=== PATIENT | male | born 1950 | race Caucasian/White ===

== ENCOUNTER 2022-11-23 10:56 | Observation (INO) ==
--- NOTE | 2022-11-02 10:24 | PAT Medication Instructions ---
Medication Instructions Date of Service November 02, 2022 Home Medications acetaminophen 650 mg tablet,extended release 1,300 mg PO Q8H PRN Pain aspirin 81 mg capsule 81 mg PO QPM atorvastatin 20 mg tablet 20 mg PO QAM loratadine-pseudoephedrine ER 10 mg-240 mg tablet,extended [id number] (Claritin-D 24 Hour) 1 tab PO HS melatonin 10 mg tablet 10 mg PO HS naproxen sodium 220 mg tablet (Aleve) 220 mg PO HS ASK your surgeon for instructions naproxen sodium 220 mg tablet (Aleve) 220 mg PO HS Take morning of surgery With a small sip of water, OTHERWISE NOTHING TO EAT OR DRINK AFTER MIDNIGHT: acetaminophen 650 mg tablet,extended release 1,300 mg PO Q8H PRN Pain (if needed) atorvastatin 20 mg tablet 20 mg PO QAM Take evening before surgery acetaminophen 650 mg tablet,extended release 1,300 mg PO Q8H PRN Pain (if needed) aspirin 81 mg capsule 81 mg PO QPM (unless surgeon directed otherwise) loratadine-pseudoephedrine ER 10 mg-240 mg tablet,extended [id number] (Claritin-D 24 Hour) 1 tab PO HS melatonin 10 mg tablet 10 mg PO HS Other Notes If you have any questions please call us at [phone] or [phone] or [phone] or [phone]
--- NOTE | 2022-11-04 10:28 | Anesthesiology Consultation ---
Date of Service November 04, 2022 Assessment & Plan (1) Encounter for pre-operative examination: - Check BSG AM DOS - COVID screening: Per assessment on 11/04: No known COVID-19 positive contacts or current COVID-19 related symptoms. Travel screen negative. Patient vaccinated - Outpatient joint assessment: Pt currently scheduled for inpatient pathway. If surgeon requests review for outpatient joint pathway, patient is an acceptable candidate for outpatient joint program from anesthesia standpoint pending surgeon's office assessment that patient is motivated, has good support and completes [facility] Program preop requirements. - Possible difficult intubation: decreased cervical extension - PCP visit (11/01/22): "patient is cleared for surgery.. Pt has revised cardiac index score of No Risk Factors- 0.4% (95% CI: 0.1-08) for the surgery scheduled" Chart Review Chart Review: Acceptable Risk for Surgery and Patient seen in Pre Admission Testing Teaching & Discussion Pre-Anesthesia Teaching/Discussion Notes: Instructed NPO after midnight before surgery,except medications with 15 cc of water. Medication instructions provided according to the PAT guidelines. History Surgery Operation Date: 11/23/22 07:15 Proposed Procedures p Left Shoulder Total Shoulder Arthroplasty Distal Clavicle Excision Biceps Tenodesis - Sean Justin MD Height/Weight Height: 6 ft Weight: 106.141 kg Allergies Allergy/AdvReac Type Severity Reaction Status Date / Time No Known Allergies Allergy Verified 10/28/22 14:23 Medications Home Medications Medication Instructions Recorded Confirmed Last Taken acetaminophen 650 mg 1,300 mg PO Q8H PRN Pain 10/28/22 10/28/22 Unknown tablet,extended release aspirin 81 mg capsule 81 mg PO QPM 10/28/22 10/28/22 Unknown atorvastatin 20 mg tablet 20 mg PO QAM 10/28/22 10/28/22 Unknown loratadine-pseudoephedrine ER 10 1 tab PO HS 10/28/22 10/28/22 Unknown mg-240 mg tablet,extended [id number] (Claritin-D 24 Hour) melatonin 10 mg tablet 10 mg PO HS 10/28/22 10/28/22 Unknown naproxen sodium 220 mg tablet 220 mg PO HS 10/28/22 10/28/22 Unknown (Maggi) Past Medical History Medical History History of Pizarro's esophagus History of COVID-19 2019, mild symptoms > resolved 2020, mild symptoms > resolved History of prostate cancer s/p prostatectomy Hx of Lyme disease 2008, s/p treatment Hyperlipidemia Pancreatic cyst Under surveillance x 3 years, stable and advised no further surveillance needed per patient Prediabetes Prediabetes and Type II DM listed on PCP PMHX records A1C 6.5% on 10/2022 labs Exercise / Class Metabolic Activity II 4-5 Yardwork/Stairs/Walk up hill (one FS (no CP, no SOB)) Past Surgical History Surgical History History of carpal tunnel surgery of left wrist History of esophagogastroduodenoscopy (EGD) History of Shon fundoplication History of robot-assisted laparoscopic radical prostatectomy [facility] Hx of arthroscopic knee surgery Hx of colonoscopy Hx of foot surgery for a bone spur on his great toe Hx of hernia repair Umbilical, inguinal R/L Past Anesthesia History No Hx of Anesthesia Complications and No Family Hx of Anesthesia Complications History of PONV No Hx of PONV and No Hx of Motion Sickness Social History Smoking Status: Never smoker Do You Dip or Chew Tobacco: No Hx Alcohol Use: Yes Alcohol type: beer alcohol intake frequency: holidays/special occasions only Hx Substance Use: No substance use type: does not use Review of Systems Patient denies chest pain, shortness of breath, dyspnea on exertion, fever, chills, cough, wheezing, palpitations. Physical Exam Vital Signs VITALS BP 120/75 P 70 TEMP 97.9 SP02 95%RA RESP 16 PHYSICAL Decreased cervical extension range of motion. Full TMJ range of motion. TMD 4 finger breaths Mallampati Score 1 Dentition: missing sides/molars, + crowns Lungs: clear throughout to auscultation Cardiac: regular rate and rhythm, no murmurs noted Spine: normal Carotid arteries: negative bruit Extremities: no LE edema Lab Results Anesthesia Preop Results Results Anesthesia Widget: PT 10.8 Seconds (9.0-12.0) 11/04/22 PTT 27.9 Seconds (21.0-31.0) 11/04/22 INR 1.0 (0.9-1.1) 11/04/22 Blood Type A Positive 11/04/22 Antibody Screen NEGATIVE 11/04/22 Testing Laboratory Results 11/01/22 WBC 6.94 H/H 14.4/44.7 PLATELETS 222 SODIUM 142 POTASSIUM 4.8 CHLORIDE 109 CO2 22 BUN 13 CREATININE 0.9 GLUCOSE 99 HGBA1C 6.5% UA NEGATIVE Electrocardiogram Date: 11/01/22 Findings: + NSR @ (62) Chest X-Ray Date: 11/04/22 FINDINGS: No lines and tubes are seen. Calcified aortic knob is seen. The lungs are clear. No evidence of pleural effusion or pneumothorax. IMPRESSION: No acute chest disease. Stress Test Date: 09/03/18 Type: exercise Exercise echo without evidence of inducible ischemia. 92% MPHR. Stress EKG response was normal. 6.4 METS. Rest echo: EF 65%. Grade I DD. Moderate LAE. Mild DIAN. RV cavity size enlarged. PASP 28mmhg. No significant valvular disease. COVID-19 Risk Screen Screening Information COVID-19 Screen Date: 11/04/22 Exposure 21 Days Family/Household +COVID Last 21 Days: No Exposure 10 Days Any COVID Exposure Last 10 Days: No Symptoms Last 10 Days Experienced COVID Sx Last 10 Days: No + COVID 0-90 Days COVID + in Last 0-90 Days: No
--- NOTE | 2022-11-22 08:50 | History & Physical Report ---
Date of Service November 22, 2022 Assessment & Plan (1) Primary osteoarthritis, left shoulder: Plan: Treatment options discussed with the patient. He has failed conservative measures and would like to proceed with surgery. Risks, benefits and alternatives to surgery including but not limited to infection, DVT, pain, stiffness, need for revision surgery, damage to blood vessels, damage to nerves, PE, , were discussed with the patient and they wish to proceed. Plan on left total shoulder arthroplasty, open distal clavicle excision, biceps tendodesis. Surgery scheduled for 11/23/[address] Justin at [facility]. Will plan on outpatient physical therapy post op. All questions answered. F/u post operatively. History of Present Illness Chief Complaint: Left shoulder pain Primary Care Provider: Pk Dillard PA-C 72yo male with PMHx significant for high cholesterol, hx of prostate Ca who presents with ongoing left shoulder pain. Pain is interfering with his daily activity. He has failed conservative measures and would like to proceed with surgical intervention. Patient denies headaches, sweats, fevers, chills, double vision, blurred vision, cough, sore throat, dysphagia, chest pain, sob, wheezing, n/v/d/c, numbness, tingling, fatigue, urinary symptoms, mood disorders. ROS positive for left shoulder pain and stiffness. Allergies Allergy/AdvReac Type Severity Reaction Status Date / Time No Known Allergies Allergy Verified 10/28/22 14:23 Home Medications Medication Instructions Recorded Confirmed Type acetaminophen 650 mg 1,300 mg PO Q8H PRN Pain 10/28/22 10/28/22 History tablet,extended release aspirin 81 mg capsule 81 mg PO QPM 10/28/22 10/28/22 History atorvastatin 20 mg tablet 20 mg PO QAM 10/28/22 10/28/22 History loratadine-pseudoephedrine ER 10 1 tab PO HS 10/28/22 10/28/22 History mg-240 mg tablet,extended [id number] (Claritin-D 24 Hour) melatonin 10 mg tablet 10 mg PO HS 10/28/22 10/28/22 History naproxen sodium 220 mg tablet 220 mg PO HS 10/28/22 10/28/22 History (Aleve) Past Med/Surg History Medical History History of Pizarro's esophagus History of COVID-19 2019, mild symptoms > resolved 2020, mild symptoms > resolved History of prostate cancer s/p prostatectomy Hx of Lyme disease 2008, s/p treatment Hyperlipidemia Pancreatic cyst Under surveillance x 3 years, stable and advised no further surveillance needed per patient Prediabetes Prediabetes and Type II DM listed on PCP PMHX records A1C 6.5% on 10/2022 labs Surgical History History of carpal tunnel surgery of left wrist History of esophagogastroduodenoscopy (EGD) History of Shon fundoplication History of robot-assisted laparoscopic radical prostatectomy [facility] Hx of arthroscopic knee surgery Hx of colonoscopy Hx of foot surgery for a bone spur on his great toe Hx of hernia repair Umbilical, inguinal R/L Social History Smoking Status: Never smoker Second Hand Exposure: No; Do You Dip or Chew Tobacco: No; Tobacco Cessation Education Requested by Patient: No Hx Alcohol Use: Yes Alcohol type: beer Hx Substance Use: No Preferred Language: Luxembourger Communication Ability: Effective Manager Van Required: No Beliefs That Will Affect Care: None Current Living Situation: Spouse Other Information That Helps Us Care for You: No Feels Safe at Home: Yes Safety Concerns: Feels Safe At This Time Assistive Devices: Glasses Review of Systems All systems reviewed & are unremarkable except as noted in HPI & below Physical Exam Constitutional: well developed and well nourished; no acute distress Eyes: PERRL, conjunctivae normal, anicteric sclerae ENMT: external ear and nose normal, oropharynx normal Neck: trachea midline, no thyromegaly Respiratory: normal respiratory effort, lungs clear to auscultation Cardiovascular: RRR, no murmur, no edema Musculoskeletal: Left shoulder: Active painful ROM. Bone on bone crepitation with ROM. diffuse tenderness. FF to 100 degrees, abduction to 90 degrees, ER to 70 degrees. Mild weakness with strength testing. Skin: no rashes, warm and dry Neurologic: patellar DTR's 2+ bilat, sensation intact Psychiatric: A+Ox3, euthymic affect Results & Data Diagnostic Findings X-rays of his left shoulder demonstrate that he has had progression of his osteoarthritis. He is now bone on bone in the glenohumeral joint on AP external rotation view and axillary view. He also has some moderate AC joint osteoarthritis and a type II acromion. Mild posterior head subluxation on axillary view. Four-view x-rays left shoulder. MRI demonstrates advanced glenohumeral osteoarthritis [id number]. On the axillary views looks like he may be getting a B2 glenoid with some posterior erosion. There is mild subluxation only. Rotator cuff has some tendinopathy but intact rotator cuff. There is substantial biceps tendinitis. He also has hypertrophic AC joint osteoarthritis with fluid in the AC joint and subchondral cystic changes
[~2022-11-23 10:56] MED LIST: ACETAMINOPHEN 500 MG TAB PO SCH; BUPIVACAINE 0.5 % 5 MG/1 ML PF 10ML VIAL ONE; CeleBREX 200 MG CAP PO SCH; FAMOTIDINE 20 MG TAB PO SCH; GABAPENTIN 300 MG CAP PO SCH; LR 500ML BOLUS, THEN 15ML/HR IV SCH; LR 60ML/HR IV SCH; METOCLOPRAMIDE HCL 10 MG TABLET PO SCH; TRANEXAMIC ACID 1,000 MG **IV Pre-op IV SCH; ceFAZolin 2000MG 2,000 MG/15 ML SYR IV SCH; dexAMETHasone 4 MG TAB PO SCH
--- NOTE | 2022-11-23 11:37 | History & Physical Bridge Note ---
Date of Service November 23, 2022 History & Physical Bridge Note I have examined the patient, reviewed the History & Physical and in the interval since the performance of the History & Physical I have noted the following changes of clinical significance: no changes noted
[2022-11-23] MEDS ORDERED: MIDAZOLAM HCL 1 MG/ML 2ML VIAL ONE (11:51)
[2022-11-23] MEDS ORDERED: fentaNYL citrate PF 100 MCG/2 ML VIAL ONE (11:52)
[2022-11-23] MEDS ORDERED: PROMETHAZINE HCL 12.5 MG in SODIUM CHLORIDE 0.9% 50 ML IV PRN (12:43)
[2022-11-23] MEDS ORDERED: ONDANSETRON INJ 2 MG/ML 2 ML VIAL IV PRN ×2 (12:43→17:31)
[2022-11-23] MEDS ORDERED: ePHEDrine sulfate 50 MG/ML AMP IV PRN (12:43)
[2022-11-23] MEDS ORDERED: HYDROmorphone INJ 2 MG/ML SYR/VIAL IV PRN (12:43)
[2022-11-23] MEDS ORDERED: ATROPINE SULFATE 0.1 MG/ML 10ML SYR IV PRN (12:43)
[2022-11-23] MEDS ORDERED: fentaNYL citrate PF 100 MCG/2 ML VIAL IV PRN (12:43)
[2022-11-23] MEDS ORDERED: EpINEphrine HCL INJ 1 MG/ML 1ML SYRINGE ONE (13:00)
[2022-11-23] MEDS ORDERED: PHENYLEPHRINE HCL 10 MG/ML VIAL ONE (13:56)
[2022-11-23] MEDS ORDERED: PROPOFOL IV EMULSION 10 MG/ML 20 ML VIAL IV ONE (13:56)
[2022-11-23] MEDS ORDERED: ONDANSETRON INJ 2 MG/ML 2 ML VIAL ONE (13:56)
[2022-11-23] MEDS ORDERED: LIDOCAINE 2% 2 ML VIAL/AMP(20MG/ML) INFIL ONE (13:56)
[2022-11-23] MEDS ORDERED: ROCURONIUM BROMIDE 10 MG/ML 5 ML VIAL IV ONE (13:56)
[2022-11-23] MEDS ORDERED: DEXAMETHASONE SOD INJ 4 MG/ML VIAL ONE (13:56)
[2022-11-23] MEDS ORDERED: ePHEDrine sulfate 50 MG/ML AMP ONE (13:56)
[2022-11-23] MEDS ORDERED: SUGAMMADEX SODIUM 200 MG/2 ML VIAL IV ONE (13:59)
[2022-11-23] MEDS: TRANEXAMIC ACID 1,000 MG **IV Intra-op IV SCH ×2 (15:46→16:12)
--- NOTE | 2022-11-23 16:46 | Operative Report ---
Post Operative Report Pre & Post Diagnosis Operation Date: 11/23/22 13:00 Pre-Op Diagnosis: Primary osteoarthritis, left shoulder, Acromioclavicular and glenohumeral joint and biceps tendinopathy and tenosynovitis Post-Op Diagnosis: Primary osteoarthritis, left shoulder tenosynovitis, acromioclavicular and glenohumeral joint and biceps tendinopathy and tenosynovitis I identified the patient and participated in the time-out.: Yes Procedure Operation Date: 11/23/22 13:00 Actual Procedures p Left Shoulder Total Shoulder Arthroplasty, Distal Clavicle Excision, Biceps Tenodesis(Left) - Sean Justin MD Surgeon Sean Justin MD Mud Engineer Siddhartha MARTINEZ Estimated Blood Loss 50 Findings Consistent with Post-Op Diagnosis Specimens humeral head and distal clavicle Drains 2 Hemovac Anesthesia Type General Regional Complications none Disposition Disposition: Recovery Room Indications 72-year-old male with severe end-stage osteoarthritis left shoulder. Patient has decreased range of motion and chronic pain. Radiographs demonstrate B2 glenoid with glenoid bone loss and MRI demonstrates intact rotator cuff with chronic biceps tendinopathy tenosynovitis of the biceps. Patient has narrow glenoid Anterior posterior diameter noted on CT scan blueprint scans. Description of Procedure the patient was taken to the operating room and anesthetized under a general and regional block anesthesia. A towel roll was placed under the medial border of the scapula of the [ Left] shoulder. The patient's head was placed on a foam headrest and protective eyewear was placed and the extremities were well padded. The arm was draped free in order to manipulate the shoulder as necessary. The shoulder exam demonstrated 100 degrees flexion 90 degrees abduction external rotation 30 degrees [id number] crepitation and prominent AC joint. The shoulder was sterilely prepped and draped in the usual sterile fashion. An anterior deltopectoral approach was performed. A longitudinal incision was made in the interval. The skin was incised sharply and subcutaneous tissues dissected down to the fascia. there was no cephalic vein. The clavipectoral fascia was divided at the lateral margin of the conjoined tendon and divided up to the level of the coracoacromial ligament which was preserved. The upper 1 cm of the pectoralis was released for inferior exposure. The biceps tendon findings demonstrated Marked tenosynovitis following the tendon out of the joint and proximally there was widening and biceps tendino joshua.. The rotator cuff tendon findings demonstrated Normal intact rotator cuff. The circumflex vessels were identified and tied off with silk ties and divided laterally. The fibers and subscapularis were split longitudinally at the level of the circumflex vessels down to the capsule and then reflected off the inferior capsule using a Kitner elevator. The axillary nerve was identified with a tug test and protected with a blunt Antolin retractor. The rotator interval was opened up and extended down to the glenoid. The biceps tendon was identified and tenodesed to the pectoralis tendon with [id number] #2 FiberWire sutures in the proximal biceps was resected. The subscapularis tendon was taken down with a trans-tendinous incision leaving a cuff of tissue for repair on the lesser tuberosity. The incision was carried down to the tendon and the capsule and a #1 Vicryl suture was placed into the free end of the subscapularis tendon. The capsule was subperiosteally dissected off the inferior neck of the humerus exposing the humeral osteophytes which demonstrated moderately large inferior osteophytes extending from anterior to posterior.. The osteophytes were excised with an artist chisel and a rongeur. The capsular release along the inferior neck of the humerus was completed. The humerus was then retracted posterior to the glenoid with a Fukuda retractor. The remainder of the biceps tendon and labrum was resected. The glenoid findings demonstrated B2 glenoid with frayed intact anterior glenoid articular cartilage and then eburnated bone posteriorly with eroded bone posteriorly. Patient had a relatively large superior inferior glenoid size but Anterior to posterior was small.. I did an anterior inferior and posterior inferior release with electrocautery on bone and a Tong elevator with the axillary nerve continuing to be protected with the blunt Hohmann retractor inferiorly. When the releases were completed and the humeral head was exposed with some extension and external rotation and in anatomic head cut was made using the oscillating saw. The Tornier ascend flex standard length total shoulder arthroplasty was used including the Cortiloc 40 radius A 25 glenoid with augmented posterior glenoid based on preoperative blueprint CT scanning templating . Attention was first taken to preparation of the humeral shaft. A centralizing awl was used followed by broaches up to the appropriate templated size. The trial broach was left in place and a cut protector was placed. The humerus was then retracted posterior to the glenoid using a Bankart retractor anteriorly and blunt Antolin and posterior Tornier glenoid retractor. the blueprint guide was placed over the glenoid and the central guidewire was drilled. The reamer for the small glenoid was used followed by the reamer for the posterior augment 25 degree angle. The trial was placed and had a good fit. The peg holes were then drilled followed by trialing of the trial small 25 degree augmented posterior 40 radius glenoid trial. There was good fit and no rocking with good stability. The trial was removed and the glenoid was irrigated with pulsatile lavage antibiotic solution and the drill holes were dried and packed with epinephrine-soaked tampons for hemostasis. The Palacos G cement was vacuum mixed. The final component was cemented into position and held in position with pressure until the cement cured. The central PEG was press-fit and the 3 peripheral pegs were cemented as well as the back of the implant. humeral head trials were placed. To gain appropriate stability required a 54 x 27 mm low offset head trial. trial reduction was performed and the shoulder was stable. The trial was removed and the humerus and canal were irrigated with pulsatile lavage saline solution. 3 drill holes were made into the hard bone in the bicipital groove lateral to the lesser tuberosity and 3 #5 FiberWire transosseous sutures were placed for repair of the subscapularis. After further irrigation of the canal and the final components were assembled. The final components were the 54 x 27 mm low offset humeral head assembled to the 5 cc standard humeral stem Tornier ascend flex PTC stem . The implant was then impacted into the humerus with a tight press-fit. The humerus was reduced to the glenoid and stability verified. The subscapularis was repaired with the #5 FiberWire sutures in a Leonel-Bobby suture technique and lateral row fixation with [id number] #2 FiberWire in the soft tissue. The rotator interval was closed with #2 FiberWire suture.. The pectoralis was then closed with [id number] #2 FiberWire suture. The sutures were passed through the biceps tendon as well to reinforce the biceps tenodesis. final range of motion with no tension on repair was 130 degrees forward flexion 90 degrees abduction and 15 degrees external rotation. Attention was taken to the distal clavicle. A transverse incision was made over the distal clavicle. Fascia was divided transversely and the periosteum and AC joint capsule was reflected anteriorly and posteriorly off of the AC joint. There were superior bone spurs at the AC joint and an arthritic hypertrophied joint with inferior spurs that were causing impingement. Oscillating saw was used to resect 1 cm distal clavicle. The osteophytes that remained were resected with a rongeur. The wound was irrigated copiously. The deltotrapezial fascia was repaired with [id number] #2 FiberWire sutures. After further irrigation the subcutaneous tissue was closed into 2 -0 Vicryl sutures and the skin was closed with zoey. The deltopectoral wound was irrigated and 2 Hemovac drains were placed. The deltopectoral interval was closed with [id number] #1 Vicryl sutures. The subcutaneous tissues were closed with interrupted 2-0 Vicryl and the skin was closed with zoey and a sterile dressing was applied. The patient tolerated the procedure well. Siddhartha Gill, My physician assistant gm of content & delivery, assisted in soft tissue retraction instrument management suture management and assisted in the subcutaneous and skin closure and will participate in the postoperative care the patient. I attest to the content of the Intraoperative Record and any orders documented therein. Any exceptions are noted below.
--- NOTE | 2022-11-23 17:07 | Anesthesiology Progress Note ---
Date of Service November 23, 2022 Anesthesia Post Procedure Vital Signs Vital Signs: Temp Pulse Resp BP Pulse Ox O2 Del Method O2 Flow Rate 11/23/22 16:55 96 H 12 165/98 H 94 Room Air 11/23/22 16:45 96 H 17 164/98 H 95 Oxymask 4 11/23/22 16:35 36.0 C L 96 H 16 162/100 H 97 Oxymask 6 11/23/22 11:23 36.7 C 72 20 159/82 H 95 Room Air Pain Intensity Left Shoulder: Pain Intensity: 1 Transfer of Care Handoff Completed per policy Notes Mental Status: alert / awake / arousable Patient Amnestic to Procedure: Yes Nausea / Vomiting: adequately controlled Pain: adequately controlled Airway Patency, RR, SpO2: stable & adequate BP & HR: stable & adequate Hydration State: stable & adequate Anesthetic Complications: no major complications apparent and Pt Satisfied with anesthetic care
[2022-11-23] MEDS ORDERED: TAMSULOSIN HCL 0.4 MG CAP PO PRN (17:31)
[2022-11-23] MEDS ORDERED: NALOXONE HCL 0.4 MG/1 ML VIAL/CARP IV PRN (17:31)
[2022-11-23] MEDS ORDERED: HYDROmorphone INJ 0.5 MG/0.5 ML SYR IV PRN (17:31)
[2022-11-23] MEDS ORDERED: MAGNESIUM HYDROXIDE SUSP 30 ML UDC PO PRN (17:31)
[2022-11-23] MEDS ORDERED: oxyCODONE HCL IR 5 MG TAB (IMMEDIATE RELEASE) PO PRN (17:31)
[2022-11-23] MEDS ORDERED: METOCLOPRAMIDE HCL INJ 5 MG/ML 2 ML VIAL IV PRN (17:31)
[2022-11-23] MEDS ORDERED: bisacodyL 10 MG SUPP PR PRN (17:31)
[2022-11-23] MEDS: SODIUM CHLORIDE 0.9% 1000ML 1,000 ML IV SCH ×2 (17:45→21:00)
--- NOTE | 2022-11-23 19:22 | Consultation ---
Date of Consultation November 23, 2022 Assessment & Plan (1) Status post total replacement of left shoulder: (2) Primary osteoarthritis, left shoulder: Post op day# 0 S/P Left total shoulder by Dr Justin EBL#50ml Pain management per ortho Wound management per ortho PT/OT as appropriate DVT prophylaxis per ortho Incentive spirometry Monitor H&H for acute blood loss anemia; pre-op Hgb: 14 (3) Sinus tachycardia: Post op HR 90's - 118 Patient without SOB, CP, palpitations Obtained EKG and reviewed sinus tachycardia rate 111, PAC Continue IVF and monitor. patient without symptoms and denies pain currently. EBL#50ml. If continued or worsening consider repeat H&H CBC in am (4) Prediabetes: A1c: 6.5 on 11/01/2022 Diet controlled Diabetic diet Monitor glucose on am labs (5) Hyperlipidemia: Continue atorvastatin (6) History of prostate cancer: S/P prostatectomy (7) History of Pizarro's esophagus: History of GERD History shon fundoplication DVT Prophylaxis SCDs Disposition per primary service Follows with Pk Dillard for routine care Pt was seen and care coordinated with Dr Mcmanus. See addendum Thank you for this consultation. We will follow the patient with you during their hospital stay. You can reach a member of the [facility] 07/11 via [facility] Supervising Physician Co-Signing Physician Notes I have seen and examined the patient and have discussed the case with the provider above. I agree with the assessment and plan as stated. 72 yo M s/p shoulder surgery today. Reports that post op discomfort is well managed. Sachin any CP, SOB or other issues at this time other than some expected thumb numbness. He is hemodynamically stable ad afebrile. Mentating clearly. My physical exam is consistent with that noted above. Medications were reviewed and confirmed. Agree with recommendations as noted above. Thank you for this consultation. We will continue to follow his progress daily during this hospitalization. DO Yonathan History of Present Illness Requesting Physician: Dr Justin Reason for Consultation: Post op medical management Attending Physician: Sean Justin MD History of Present Illness Patient is 72-year-old male with PMH dyslipidemia, history of prostate cancer s/p prostatectomy, Pizarro's esophagus, GERD, history shon fundoplication, prediabetes seen in medical consultation s/p left total shoulder today by Dr. Justin. Post op patient reports he is doing well. Still with left upper ext remity numbness. Denies any pain currently. Denies shortness of breath, chest pain, palpitations. Last BM reported this morning. Denies fever/chills, diaphoresis, N/V/D, OSUNA, dizziness, cough, sore throat, rhinorrhea, abdominal pain, extremity edema, rashes, urinary symptoms. Allergies Allergy/AdvReac Type Severity Reaction Status Date / Time No Known Allergies Allergy Verified 11/23/22 11:25 Home Medications Medication Instructions Recorded Confirmed Type acetaminophen 650 mg 1,300 mg PO Q8H PRN Pain 10/28/22 11/23/22 History tablet,extended release aspirin 81 mg capsule 81 mg PO QPM 10/28/22 11/23/22 History atorvastatin 20 mg tablet 20 mg PO QAM 10/28/22 11/23/22 History loratadine-pseudoephedrine ER 10 1 tab PO HS 10/28/22 11/23/22 History mg-240 mg tablet,extended [id number] (Claritin-D 24 Hour) melatonin 10 mg tablet 10 mg PO HS 10/28/22 11/23/22 History naproxen sodium 220 mg tablet 220 mg PO HS 10/28/22 11/23/22 History (Aleve) Patient History Medical History (Updated 11/23/22 @ 19:24 by Lilly Moser PA-C) History of Pizarro's esophagus History of COVID-19 2019, mild symptoms > resolved 2020, mild symptoms > resolved History of prostate cancer s/p prostatectomy Hx of Lyme disease 2008, s/p treatment Hyperlipidemia Pancreatic cyst Under surveillance x 3 years, stable and advised no further surveillance needed per patient Prediabetes Prediabetes and Type II DM listed on PCP PMHX records A1C 6.5% on 10/2022 labs Surgical History (Updated 11/23/22 @ 19:22 by Lilly Moser PA-C) History of carpal tunnel surgery of left wrist History of esophagogastroduodenoscopy (EGD) History of Shon fundoplication History of robot-assisted laparoscopic radical prostatectomy [facility] Hx of arthroscopic knee surgery Hx of colonoscopy Hx of foot surgery for a bone spur on his great toe Hx of hernia repair Umbilical, inguinal R/L Social History Smoking Status: Never smoker Second Hand Exposure: No; Do You Dip or Chew Tobacco: No; Tobacco Cessation Education Requested by Patient: No Hx Alcohol Use: Yes Alcohol type: beer Hx Substance Use: No Preferred Language: Bhutanese Communication Ability: Effective 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 Beliefs That Will Affect Care: None Current Living Situation: Spouse Other Information That Helps Us Care for You: No Feels Safe at Home: Yes Safety Concerns: Feels Safe At This Time Assistive Devices: Glasses Review of Systems Review of Systems: All systems reviewed & are unremarkable except as noted in HPI & below Physical Exam Physical Exam: General: no distress, WDWN Head: normocephalic, atraumatic Eyes: conjunctiva non-injected, anicteric ENT: normal inspection external ears, nose, mucous membranes moist Neck: supple, trachea midline Lungs: clear, no respiratory distress, no wheezing/rhonchi/rales CV: +tachycardia rate 110, regular rhythm, no murmur, no pretibial edema Abd: normal BS, soft, non-tender Ext: no cyanosis, no calf tenderness; LUE: +surgical dressing in place, +sling in place, active ROM fingers, sensation to light touch intact, distal pulses intact Neuro: A&O x 3, no focal deficits noted, normal affect Skin: warm, dry Results & Data Vital Signs (Past 12 Hours) Vital Signs Temp Pulse Pulse Resp BP Pulse Ox O2 Del Method 11/23/22 18:30 36.8 C 108 H 16 136/78 95 Nasal Cannula 11/23/22 18:00 36.9 C 98 H 16 144/78 H 95 Nasal Cannula 11/23/22 17:49 Room Air 11/23/22 17:30 36.8 C 92 H 16 141/92 H 96 Nasal Cannula 11/23/22 17:15 94 H 20 142/96 H 96 Nasal Cannula 11/23/22 17:05 36.4 C L 95 H 20 161/94 H 94 Nasal Cannula 11/23/22 16:55 96 H 12 165/98 H 94 Room Air 11/23/22 16:45 96 H 17 164/98 H 95 Oxymask 11/23/22 16:35 36.0 C L 96 H 16 162/100 H 97 Oxymask 11/23/22 11:23 36.7 C 72 20 159/82 H 95 Room Air O2 Flow Rate 11/23/22 18:30 2 11/23/22 18:00 2 11/23/22 17:49 11/23/22 17:30 2 11/23/22 17:15 2 11/23/22 17:05 2 11/23/22 16:55 11/23/22 16:45 4 11/23/22 16:35 6 11/23/22 11:23
--- NOTE | 2022-11-23 19:35 | XRay Report ---
LEFT SHOULDER 2 VIEWS CLINICAL HISTORY: Postoperative examination FINDINGS: 2 portable views of the left shoulder are obtained. The skeletal structures are osteopenic. A left shoulder arthroplasty is in near anatomic alignment. No acute fracture is seen. Postsurgical change is noted at the acromioclavicular joint. Skin clips, a surgical drain, subcutaneous gas, and s oft tissue swelling overlying the left shoulder are expected postoperative findings. The visualized l eft lung parenchyma appears clear noting basilar atelectasis. IMPRESSION: Expected postoperative findings status post left shoulder arthroplasty. No acute fracture is seen. Electronically signed by: Errol Ferrer M.D. 11/23/2022 7:34 PM
[2022-11-23] MEDS ORDERED: SODIUM CHLORIDE 0.9% 1000ML 500 ML IV ONE (19:46)
[2022-11-23] MEDS: ceFAZolin 2000MG 2,000 MG/15 ML SYR IV SCH (20:23)
[2022-11-23] MEDS: DOCUSATE SODIUM 100 MG CAP PO SCH (20:24)
[2022-11-23] MEDS ORDERED: ASPIRIN 81 MG ECTAB PO SCH (21:00)
[2022-11-23] MEDS ORDERED: LORATADINE 10 MG TAB PO SCH (21:00)
[2022-11-23] MEDS ORDERED: MELATONIN 3 MG TAB PO SCH (21:00)
[2022-11-23] MEDS ORDERED: SENNA 8.6 MG TAB PO SCH (21:00)
[2022-11-23] MEDS: ACETAMINOPHEN 500 MG TAB PO SCH (21:01)
[2022-11-24] MEDS: ceFAZolin 2000MG 2,000 MG/15 ML SYR IV SCH (04:17)
[2022-11-24] MEDS: ACETAMINOPHEN 500 MG TAB PO SCH (06:38)
[2022-11-24 07:19] LABS: Basophils # (auto) 0.01 K/uL (0-0.2); Basophils % (auto) 0.1 %; Hematocrit (blood only) 37.7 % (42.0-52.0); Hemoglobin 12.6 g/dl (14.0-18.0); Immature Granulocytes # (auto) 0.08 K/uL (0.01-0.20); Immature Granulocytes % (auto) 0.5 %; Lymphocytes # (auto) 0.89 K/uL (1.2-3.4); Lymphocytes % (auto) 5.7 %; Mean Corpuscular Hemoglobin 30.2 pg (25.0-34.0); Mean Corpuscular Hgb Conc 33.4 g/dL (32.0-36.0); Mean Corpuscular Volume 90.4 fL (80.0-100.0); Mean Platelet Volume 9.4 fL (9.4-12.4); Monocytes # (auto) 1.04 K/uL (0.11-0.59); Monocytes % (auto) 6.6 %; Neutrophils # (auto) 13.68 K/uL (1.40-6.50); Neutrophils % (auto) 87.1 %; Platelet Count 210 K/uL (130-400); RDW Standard Deviation 42.8 fL (36.4-46.3); Red Blood Count 4.17 M/uL (4.70-6.10)
--- NOTE | 2022-11-24 07:21 | Orthopedic Progress Note ---
Date of Service November 24, 2022 Assessment & Plan (1) Status post total replacement of left shoulder: Plan: Postop day #1 left total shoulder arthroplasty, open distal clavicle excision -PT/OT: Per [facility]SA protocol -Pain management as written -AM labs: Hemoglobin 12.6 acute blood loss anemia due to surgical loss versus dilutional, leukocytosis likely reactive due to surgical stress versus perioperative steroids. Patient is asymptomatic. -DVT prophylaxis: SCDs, aspirin 81 mg daily -Discharge planning: Plan on discharge home likely today. Admission and Anticipated Discharge Date Admission Date: November 23, 2022 Subjective Patient is postop day #1 left total shoulder arthroplasty. He is doing well this morning. Minimal pain. No other complaints. Denies chest pain, shortness of breath, nausea/vomiting/diarrhea, headaches or dizziness. Review of Systems Review of Systems: All systems reviewed & are unremarkable except as noted in Subjective Physical Exam Physical Exam: Left shoulder: Sling is in place. Dressing is clean, dry, intact. Fingers are mobile with good contract designer strength. He does have some difficulty extending his wrist and some numbness in his thumb likely residual from nerve block. Otherwise neurovascular status and sensation is grossly intact. Constitutional: WD/WN, vitals as above Results & Data Vital Signs (Past 12 Hours) Vital Signs Temp Pulse Resp BP Pulse Ox O2 Del Method O2 Flow Rate 11/24/22 04:25 94 Room Air 11/24/22 03:20 36.8 C 94 H 18 127/81 93 Room Air 11/23/22 20:25 Room Air 11/23/22 22:58 96 Nasal Cannula 1 11/23/22 22:58 37.1 C 100 H 16 130/80 91 Room Air 11/23/22 20:30 36.6 C 113 H 18 121/75 92 Room Air 11/23/22 19:25 36.8 C 112 H 18 147/91 H 95 Nasal Cannula 2.0 Laboratory Results Lab Results 11/23/22 11/24/22 11/24/22 Range/Units 11:40 06:51 06:51 WBC 15.70 H (4.8-10.8) K/ul RBC 4.17 L (4.70-6.10) M/uL Hgb 12.6 L (14.0-18.0) g/dl Hct 37.7 L (42.0-52.0) % MCV 90.4 (80.0-100.0) fL MCH 30.2 (25.0-34.0) pg MCHC 33.4 (32.0-36.0) g/dL RDW Std Deviation 42.8 (36.4-46.3) fL RDW Coeff of Romain 13.0 (11.5-14.5) % Plt Count 210 (130-400) K/uL MPV 9.4 (9.4-12.4) fL Immature Gran % (Auto) 0.5 % Neut % (Auto) 87.1 % Lymph % (Auto) 5.7 % Graham % (Auto) 6.6 % Eos % (Auto) 0.0 % Baso % (Auto) 0.1 % Neut # (Auto) 13.68 H (1.40-6.50) K/uL Lymph # (Auto) 0.89 L (1.2-3.4) K/uL Graham # (Auto) 1.04 H (0.11-0.59) K/uL Eos # (Auto) 0.00 (0-0.50) K/uL Baso # (Auto) 0.01 (0-0.2) K/uL Immature Gran # (Auto) 0.08 (0.01-0.20) K/uL Sodium 141 (136-145) mmol/L Potassium 4.3 (3.5-5.1) mmol/L Chloride 110 H (98-107) mmol/L Carbon Dioxide 24 (21-32) mmol/L Anion Gap 7 (3-11) BUN 15 (6-23) mg/dl Creatinine 0.81 (0.6-1.4) mg/dl Est Cr Clr Drug Dosing 102.1 ml/min Est GFR ( Amer) 102.2 ml/min Est GFR (Non-Af Amer) 88.2 ml/min BUN/Creatinine Ratio 18.5 (10-20) Glucose 145 H (70-99(Fasting)) mg/dl POC Glucose 95 (70-99) mg/dl Calcium 8.8 (8.6-10.3) mg/dl
[2022-11-24 07:36] LABS: BUN Creatinine Ratio 18.5 (10-20); Calcium 8.8 mg/dl (8.6-10.3); Creatinine Clr Calc Pharmacy 102.1 ml/min; Est GFR (African American) 102.2 ml/min; Est GFR (Non-African American) 88.2 ml/min; Potassium 4.3 mmol/L (3.5-5.1)
[2022-11-24] MEDS: DOCUSATE SODIUM 100 MG CAP PO SCH (08:12)
--- NOTE | 2022-11-24 08:54 | Hospitalist Progress Note ---
Date of Service November 24, 2022 Assessment & Plan (1) Status post total replacement of left shoulder: (2) Primary osteoarthritis, left shoulder: Plan: Post op day# 0 S/P Left total shoulder by Dr Justin EBL#50ml Pain management per ortho Wound management per ortho PT/OT as appropriate DVT prophylaxis per ortho Incentive spirometry Monitor H&H for acute blood loss anemia; pre-op Hgb: 14 (3) Sinus tachycardia: Plan: Post op HR 90's - 118 Patient without SOB, CP, palpitations Obtained EKG and reviewed sinus tachycardia rate 111, PAC Continue IVF and monitor. patient without symptoms and denies pain currently. EBL#50ml. If continued or worsening consider repeat H&H CBC in am (4) Prediabetes: Plan: A1c: 6.5 on 11/01/2022 Diet controlled Diabetic diet Monitor glucose on am labs (5) Hyperlipidemia: Plan: Continue atorvastatin (6) History of prostate cancer: Plan: S/P prostatectomy (7) History of Pizarro's esophagus: Plan: History of GERD History henrry fundoplication DVT Prophylaxis SCDs Disposition per primary service Follows with Pk Dillard for routine care Pt was seen and care coordinated with Dr Mcmanus. See addendum Thank you for this consultation. We will follow the patient with you during their hospital stay. You can reach a member of the [facility] Team 07/11 via [employer] Admission and Anticipated Discharge Date Admission Date: November 23, 2022 Results & Data Results & Data Vital Signs (Past 12 Hours) Vital Signs Temp Pulse Pulse Resp BP Pulse Ox O2 Del Method 11/24/22 07:40 36.4 C L 80 16 145/80 H 94 Room Air 11/24/22 07:30 Room Air 11/24/22 04:25 94 Room Air 11/24/22 03:20 36.8 C 94 H 18 127/81 93 Room Air 11/23/22 22:58 96 Nasal Cannula 11/23/22 22:58 37.1 C 100 H 16 130/80 91 Room Air O2 Flow Rate 11/24/22 07:40 11/24/22 07:30 11/24/22 04:25 11/24/22 03:20 11/23/22 22:58 1 11/23/22 22:58 Laboratory Results Short CBC 11/24/22 Range/Units 06:51 WBC 15.70 H (4.8-10.8) K/ul Hgb 12.6 L (14.0-18.0) g/dl Hct 37.7 L (42.0-52.0) % Plt Count 210 (130-400) K/uL [facility] 11/24/22 06:51 Sodium 141 Potassium 4.3 Chloride 110 H Carbon Dioxide 24 BUN 15 Creatinine 0.81 Glucose 145 H Calcium 8.8 Medications Administered Current Inpatient Medications Acetaminophen (Acetaminophen 500 Mg Tab) 1,000 mg PO Q8 [facility] Stop: 12/23/22 21:59 Last Admin: 11/24/22 06:38 Dose: 1,000 mg Aspirin (Aspirin 81 Mg Ectab) 81 mg PO QPM [facility]ARTIN Stop: 12/23/22 20:59 Last Admin: 11/23/22 20:23 Dose: 81 mg Atorvastatin Calcium (Atorvastatin 20 Mg Tab) 20 mg PO QAM MARTIN Stop: 12/24/22 08:59 Last Admin: 11/24/22 08:12 Dose: 20 mg Bisacodyl (Bisacodyl 10 Mg Supp) 10 mg AL DAILY PRN PRN Reason: Constipation Stop: 12/23/22 17:30 Docusate Sodium (Docusate Sodium 100 Mg Cap) 100 mg PO BID [facility] Stop: 12/23/22 20:59 Last Admin: 11/24/22 08:12 Dose: 100 mg Hydromorphone HCl (Hydromorphone Inj 0.5 Mg/0.5 Ml Syr) 0.5 mg IV Q4H PRN PRN Reason: Pain or Pre PT Stop: 12/07/22 17:30 Loratadine (Loratadine 10 Mg Tab) 1 mg PO HS [facility] Stop: 12/23/22 20:59 Last Admin: 11/23/22 20:23 Dose: 1 mg Magnesium Hydroxide (Magnesium Hydroxide Susp 30 Ml Udc) 30 ml PO Q6H PRN PRN Reason: Constipation Stop: 12/23/22 17:30 Melatonin (Melatonin 3 Mg Tab) 9 mg PO HS [facility] Stop: 12/23/22 20:59 Last Admin: 11/23/22 20:24 Dose: 9 mg Metoclopramide HCl (Metoclopramide Hcl Inj 5 Mg/Ml 2 Ml Vial) 10 mg IV Q6H PRN PRN Reason: Nausea And Vomiting Stop: 12/23/22 17:30 Multivitamins (Multivitamin Tab) 1 tab PO QAM [facility] Stop: 12/24/22 08:59 Last Admin: 11/24/22 08:12 Dose: 1 tab Naloxone HCl (Naloxone Hcl 0.4 Mg/1 Ml Vial/Carp) 0.1 mg IV Q5M PRN PRN Reason: Oversedation/Resp Depression Stop: 12/23/22 17:30 Ondansetron HCl (Ondansetron Inj 2 Mg/Ml 2 Ml Vial) 4 mg IV Q6H PRN PRN Reason: Nausea And Vomiting Stop: 12/23/22 17:30 Oxycodone HCl (Oxycodone Hcl Ir 5 Mg Tab (Immediate Release)) 5 - 10 mg PO Q4H PRN PRN Reason: Pain or Pre PT Stop: 12/07/22 17:30 Sennosides (Senna 8.6 Mg Tab) 17.2 mg PO [facility] Stop: 12/23/22 20:59 Last Admin: 11/23/22 20:24 Dose: 17.2 mg Tamsulosin HCl (Tamsulosin Hcl 0.4 Mg Cap) 0.4 mg PO QAM PRN PRN Reason: UNABLE to void Stop: 12/23/22 17:30
[2022-11-24] MEDS ORDERED: ATORVASTATIN 20 MG TAB PO SCH (09:00)
[2022-11-24] MEDS ORDERED: MULTIVITAMIN TAB PO SCH (09:00)
--- NOTE | 2022-11-24 11:07 | Electrocardiogram Report ---
Test Reason : Blood Pressure : / mmHG Vent. Rate : 111 BPM Atrial Rate : 111 BPM P-R Int : 166 ms QRS Dur : 092 ms QT Int : 348 ms P-R-T Axes : 044 -39 024 degrees QTc Int : 473 ms Sinus tachycardia with Premature atrial complexes Left axis deviation Minimal voltage criteria for LVH, may be normal variant Abnormal ECG No previous ECGs available Confirmed by Leo Peralta ([id number]) on 11/24/2022 11:07:37 AM Referred By: Sean Justin Confirmed By:Sesar Peralta
== END 2022-11-24 11:23 | disposition home or self-care (01) ==
LOC: ASU 10:56 → 3N 10:56